=== PATIENT | female | born 1945 | race Caucasian/White ===

== ENCOUNTER → 2016-11-28 | Outpatient (CLI) | payer MEDICARE, OTHER ==
[~2016-11-28] MED LIST: AMLO10TA82 PO; ATN50T PO; AZIT250T81 PO; CHOL500014 PO; ENAL20TA PO; FOLI1TAB7 PO; GLUC1TAB20 PO; LEVO100T7 PO; LEVO250T11 PO; OMEG1CAP24 PO; PRAV40TA2 PO; TRIA1TAB5 PO
[2016-11-28 13:57] VITALS: BP 117/72
--- NOTE | 2016-11-28 13:57 | Urgent Care T Sheet Gen (E) ---
Intake General Temperature (Fahrenheit): 98.4 Pulse: 70 Blood Pressure Systolic: 117 Blood Pressure Diastolic: 72 Respirations: 16 SPO2: 99 Chief Complaint: Genitourinary Complaint Description of Symptoms Complains of UTI symptoms x 2 days, burning urgency, frequency. This is her second UTI ever. no high fevers and no back pain. no obvious blood seen. She has renal disease and follows with Dr Singh- no nephrology at this point. I called office creatinine in October 2016 was 1.88. Spoke with Dr. Singh Source: Patient History of Present Illness Onset & Duration: Days (x2) Timing: Still present Recent Trauma: No Allergies: Coded Allergies: No Known Drug Allergies (Unverified , 04/09/15) Home Meds Active Scripts Levofloxacin (Levaquin)250 Mg [id number] Mg PO DAILY Infection #7 TAB Ref 0 Prov:ANGELIA ROJO APRN () 11/28/16 Azithromycin (Zithromax Z-Guillaume)6 Tab/Pkt [id number] Mg PO SEE INSTRUCTIONS #6 TAB Ref 0 Day One: Take 2 tablets by mouth Days Two-Five: Take 1 tablet by mouth Prov:CARLOS DUMONT 07/18/16 Reported Medications [place]-3 Fatty Acids/Fish Oil ([place] 3 Fish Oil Softgel)1 Each Capsule.dr1 Each PO DAILY 04/09/15 Gluc Amaral/Chondro Amaral A/Vit C/Mn (Glucosamine Chondroitin Tab)1 Each Tablet2 Each PO DAILY 04/09/15 Folic Acid/Multivits-Min/Lut (Centrum Silver Chewable Tablet)1 Each Tab.chew1 Each PO DAILY 04/09/15 Cholecalciferol (Vitamin D3) (Vitamin D)5,000 Unit Tablet5,000 Unit PO DAILY 04/09/15 Triamterene/Hydrochlorothiazid (Triamterene-HCTZ 75 mg/50 mg)1 Each Tablet1 Tab PO DAILY PRN HTN/FLUID RETENTION Ref 0 04/09/15 Pravastatin Sodium 40 Mg [id number] Mg PO DAILY 04/09/15 Amlodipine Besylate 10 Mg Dxkjkz42 Mg PO DAILY HTN 04/09/15 Enalapril Maleate 20 Mg Hycxvt00 Mg PO DAILY HTN 04/09/15 Atenolol 50 Mg Klcgqq41 Mg PO DAILY HTN 04/09/15 Levothyroxine Sodium 100 Mcg [id number] Mcg PO DAILY 04/09/15 Respiratory Constitutional Symptoms: No Fever EENTM: No symptoms reported Respiratory: No symptoms reported Genitourinary: Dysuria Frequency Other (urgency) All Other Systems Reviewed Remaining Systems: All other systems reviewed with negative findings Past Ixmhpgv-Zpaefq-Zcnhqj Hx Patient's Social History Alcohol Use: Denies Use Recreational Drug Use: Denies Use Surgeries/Hospitalizations Hospitalization/Surgery Hx: Tonsillectomy Hyst Ovarian cyst Respiratory Respiratory History: None Cardiovascular Cardiovascular History: Hypertension, Palpitations Reproductive System Sexually Transmitted Diseases: No Gastrointestinal GI/Endocrine History: Thyroid disorder, Heartburn Comment: "gall bladder attack" several yrs ago but no problems since Diabetes Diabetes: NIDDM Diet controlled HEENT Impaired Vision: Glasses Hearing Impaired: None Psychosocial Behavior Disorders: None Physical Exam Physical Exam General Appearance: WD/WN No apparent distress Eyes, Ears, Nose, Throat Ex: PERRL/EOMI Neck Exam: Full range of motion Supple Normal inspection Respiratory Exam: Lungs clear Normal breath sounds No respiratory distress No accessory muscles usedNo Wheezes Cardiovascular Exam: Regular rate, rhythm No murmur GI/ Exam: Non tender No organomegaly Normal bowel sounds Back Exam: Normal Inspection No CVA tenderness No vertebral tenderness Skin Exam: Normal color Warm/dry/intact Neurologic/Psychiatric Exam: Oriented times 4 Progress/Orders Lab Results Labs Results: UA (3+ leuks, + blood +ketones moderate blood 1+ protein) Departure Urgent Care Impression Chief Complaint: UC Genitourinary Complaint Impression: Primary Impression: Urinary tract infection Qualified Code: N30.00 - Acute cystitis without hematuria Departure Disposition: 01 HOME OR SELF-CARE Condition: Stable Referrals: ALBINO GOFF MD (PCP) Additional Instructions: Long talk with her- culture sent out to [facility] today rest hydrate Tylenol for pain or fever I spoke with Dr Singh- her creat is 1.88 He wants her to be on Levaquin 250 po daily x 7 days and f/u with him She agrees to plan of care Scripts Levofloxacin (Levaquin)250 Mg Jtfjzh950 Mg PO DAILY Infection #7 TAB Ref 0 Prov:ANGELIA ROJO APRN () 11/28/16 End of report . ANGELIA ROJO APRN () Nov 28, 2016 13:57
--- NOTE | 2016-11-30 15:33 | Urgent Care Follow Up Note (E) ---
Urgent Care Follow Up Note Urine culture showed E.coli. Was placed on Levaquin however wasn't tested against that medication. Scripts Levofloxacin (Levaquin)250 Mg [id number] Mg PO DAILY Infection #7 TAB Ref 0 Prov:ANGELIA ROJO APRN () 11/28/16 CARLOS DUMONT Nov 30, 2016 15:33
== END ==
LOC: MHUC 13:33
PROVIDERS: ATTEND Nurse Practitioner
DX: N30.00 Acute cystitis without hematuria (principal)
CPT/HCPCS: 81002; 99213

== ENCOUNTER → 2016-12-07 | Outpatient (CLI) | payer MEDICARE, OTHER ==
[2016-12-07 14:57] LABS: ANION GAP 19.6 MEQ/L (3-15)
== END ==
LOC: LAB 13:57
PROVIDERS: ATTEND Family Medicine
DX: N18.3 Chronic kidney disease, stage 3 (moderate) (principal)
CPT/HCPCS: 36415; 80048

== ENCOUNTER → 2016-12-13 | Outpatient (CLI) | payer MEDICARE, OTHER ==
[2016-12-13 12:26] LABS: BILIRUBIN,URINE Negative (Negative); CLARITY,URINE Clear; COLOR,URINE Yellow; GLUCOSE, URINE (UA) Negative (Negative); LEUKOCYTE ESTERASE ,URINE Trace (Negative); PH,URINE 6.5 (5.0 - 8.0); UROBILINOGEN,URINE 0.2 mg/dL (0.2-1.0)
[2016-12-13 12:28] LABS: URINE CENTRIFUGED VOLUME 12 mL
[2016-12-13 12:35] LABS: RBC,URINE 0-2 /HPF
== END ==
LOC: RAD 11:01
PROVIDERS: ATTEND Family Medicine
DX: N18.4 Chronic kidney disease, stage 4 (severe) (principal); R82.99 Other abnormal findings in urine
CPT/HCPCS: 76770; 81003; 81015; 82570; 84156; 87088

== ENCOUNTER → 2017-01-20 | Outpatient (REF) | payer MEDICARE, OTHER ==
[2017-01-20 10:41] LABS: ANION GAP 14.2 MEQ/L (3-15)
== END ==
LOC: LAB 10:19
PROVIDERS: ATTEND Nurse Practitioner Family
DX: M79.605 Pain in left leg (principal)
CPT/HCPCS: 80048

== ENCOUNTER → 2017-01-20 | Outpatient (CLI) | payer MEDICARE, OTHER | LOC: RAD 10:27 | PROVIDERS: ATTEND Nurse Practitioner Family | DX: M79.605 Pain in left leg (principal) ==

== ENCOUNTER → 2017-01-25 | Outpatient (CLI) | payer MEDICARE, OTHER ==
[2017-01-25 12:35] LABS: ALBUMIN 4.1 g/dL (3.4-5.0); ANION GAP 17.2 MEQ/L (3-15); PHOSPHORUS 3.7 mg/dL (2.4-4.9)
== END ==
LOC: LAB 11:45
PROVIDERS: ATTEND Internal Medicine Nephrology
DX: N18.3 Chronic kidney disease, stage 3 (moderate) (principal); M79.605 Pain in left leg
CPT/HCPCS: 36415; 80069

== ENCOUNTER → 2017-02-15 | Outpatient (REF) | payer MEDICARE, OTHER ==
[2017-02-15 13:36] LABS: ANION GAP 14.1 MEQ/L (3-15)
== END ==
LOC: LAB 12:11
PROVIDERS: ATTEND Nurse Practitioner Family
DX: N18.3 Chronic kidney disease, stage 3 (moderate) (principal); R73.09 Other abnormal glucose
CPT/HCPCS: 80048; 83036

== ENCOUNTER → 2017-02-27 | Outpatient (REF) | payer MEDICARE, OTHER ==
[2017-02-27 12:59] LABS: ANION GAP 20.2 MEQ/L (3-15)
== END ==
LOC: LAB 12:05
PROVIDERS: ATTEND Physician Assistant Surgical
DX: E87.6 Hypokalemia (principal)
CPT/HCPCS: 80048

== ENCOUNTER → 2017-03-29 | Outpatient (REF) | payer MEDICARE, OTHER ==
[2017-03-29 13:09] LABS: ANION GAP 16.7 MEQ/L (3-15)
== END ==
LOC: LAB 11:57
PROVIDERS: ATTEND Family Medicine
DX: N18.3 Chronic kidney disease, stage 3 (moderate) (principal)
CPT/HCPCS: 80048

== ENCOUNTER → 2017-04-07 | Outpatient (CLI) | payer MEDICARE, OTHER ==
--- NOTE | 2017-04-07 19:04 | Diagnostic Imaging Report ---
INDICATION: Bilateral knee pain. Four views of both knees are obtained. Exam is compared to a previous study from May 05, 2016. FINDINGS: The right knee demonstrates moderate to severe narrowing of the medial joint space which has worsened. Medial and lateral osteophytes greatest medially have not appreciably changed. Small patellofemoral osteophytes are present. No fracture or joint effusion is seen. Imaging of the left knee demonstrates medial joint space narrowing which is moderate. This has worsened since previous exam. Medial osteophytes are present. No fracture or subluxation is present. IMPRESSION: There are degenerative changes of both knees right worse than the left. Both of these have advanced since the previous exam from one year ago. Dictated by: Dictated on workstation # [id number]
== END ==
LOC: RAD 10:02
PROVIDERS: ATTEND Orthopaedic Surgery
DX: M25.562 Pain in left knee (principal); M25.561 Pain in right knee; M17.0 Bilateral primary osteoarthritis of knee